=== PATIENT | male | born 1945 | race Two or more races ===

== ENCOUNTER 2019-03-13 23:46 | Inpatient (IN) | payer MEDICARE ==
[~2019-03-13] VITALS: Ht 185.4 cm; Wt 117.5 kg
[~2019-03-13 23:46] MED LIST: AMLO5TAB88 PO; BUME2TAB7 PO; DRON400T PO; FINA5TAB11 PO; FURO-151 PO; GABA-529 PO; GLIP10TA10 PO; METF-416 PO; RIVA10TA PO; TAMS0.4C31 PO; TRAM50TA3 PO
[2019-03-14 01:03] LABS: BASOPHILS % 0.4 % (0.0-2.0); EOSINOPHILS % 0.8 % (0.0-5.0); HEMATOCRIT. 33.1 % (42.0-52.0); HEMOGLOBIN. 10.6 g/dL (14.0-18.0); LYMPHOCYTES % 8.7 % (20.0-50.0); MEAN CORPUSCULAR HEMOGLOBIN 24.5 pg (28.0-32.0); MEAN CORPUSCULAR VOLUME 76.3 fL (80.0-94.0); MEAN PLATELET VOLUME 7.1 fl (7.4-10.4); MONOCYTES % 7.3 % (2.0-8.0); NEUTROPHILS % 82.8 % (40.0-76.0); PLATELET 252 x1000/uL (130-400); RED BLOOD CELL COUNT 4.34 mill/uL (4.7-6.1); RED CELL DISTRIBUTION WIDTH 19.4 % (11.6-14.6)
[2019-03-14 01:08] LABS: CHLORIDE 105 mEq/L (98-107)
[2019-03-14] MEDS ORDERED: ASPIRIN 325MG EC TABLET PO ONE (03:45)
[2019-03-14 08:30] VITALS: BP 138/87
[2019-03-14] MEDS ORDERED: DEXTROSE 50% WATER 50ML SYRINGE IV PRN ×2 (09:45→14:30)
[2019-03-14] MEDS ORDERED: INFLUENZA VIRUS VACCINE(AFLURIA) 0.5ML SYR IM ONE (10:45)
[2019-03-14] MEDS: AMLODIPINE 5MG TABLET PO SCH (11:51)
[2019-03-14 12:00] VITALS: BP 131/83
[2019-03-14] MEDS: BLOOD SUGAR DIAGNOSTIC STRIP TEST SCH ×3 (12:40→20:51)
[2019-03-14] MEDS: INSULIN LISPRO 100 UNITS/ML SUBCUT SCH ×3 (13:10→20:51)
[2019-03-14] MEDS ORDERED: REGADENOSON 0.4 MG/5 ML IV NR (14:15)
[2019-03-14] MEDS ORDERED: AMLODIPINE 5MG TABLET PO SCH (14:30)
[2019-03-14] MEDS ORDERED: FINASTERIDE 5MG TABLET PO SCH (14:30)
[2019-03-14] MEDS ORDERED: BUMETANIDE 2 MG PO SCH (14:30)
[2019-03-14] MEDS ORDERED: RIVAROXABAN 10 MG TABLET PO SCH (14:30)
[2019-03-14] MEDS ORDERED: TRAMADOL 50MG TABLET PO SCH (14:30)
[2019-03-14] MEDS: TAMSULOSIN HCL 0.4MG SR CAPSULE PO SCH (15:22)
[2019-03-14] MEDS: GLIPIZIDE 10MG TABLET PO SCH ×2 (15:22→17:24)
[2019-03-14] MEDS: GABAPENTIN 100MG CAPSULE PO SCH (15:22)
[2019-03-14 16:00] VITALS: BP 147/92
[2019-03-14] MEDS ORDERED: DRONEDARONE HYDROCHLORIDE 400 MG PO SCH (17:00)
[2019-03-14] MEDS ORDERED: BUMETANIDE 1MG TABLET PO SCH (17:00)
[2019-03-14] MEDS: RIVAROXABAN 20 MG TABLET PO SCH (17:25)
[2019-03-14] MEDS ORDERED: BLOOD SUGAR DIAGNOSTIC STRIP TEST SCH (17:40)
[2019-03-14] MEDS ORDERED: INSULIN LISPRO 100 UNITS/ML SUBCUT SCH (18:10)
[2019-03-14] MEDS: METFORMIN HCL 500MG TABLET PO SCH (19:08)
[2019-03-14 20:00] VITALS: BP 120/65
[2019-03-14 21:00] LABS: T4 FREE 1.25 ng/dL (0.76-1.46)
[2019-03-14] MEDS: TRAMADOL 50MG TABLET PO PRN (21:33)
[2019-03-14] MEDS: INSULIN GLARGINE UD 100 UNITS/ML SYR SUBCUT SCH (21:38)
[2019-03-15] VITALS: BP 130/55
[2019-03-15] LABS: CREATINE KINASE MB FRACTION 9.2 ng/mL (0.5-3.6)
[2019-03-15 04:00] VITALS: BP 130/84
[2019-03-15] MEDS: INSULIN LISPRO 100 UNITS/ML SUBCUT SCH ×4 (06:58→21:41)
[2019-03-15] MEDS: BLOOD SUGAR DIAGNOSTIC STRIP TEST SCH ×4 (06:58→21:39)
[2019-03-15] MEDS: METFORMIN HCL 500MG TABLET PO SCH ×2 (07:47→18:16)
[2019-03-15 08:00] VITALS: BP 142/85
[2019-03-15 08:24] LABS: CREATINE KINASE MB FRACTION 8.1 ng/mL (0.5-3.6)
[2019-03-15] MEDS ORDERED: TAMSULOSIN HCL 0.4MG SR CAPSULE PO SCH (09:00)
[2019-03-15] MEDS ORDERED: FUROSEMIDE 40MG TABLET PO SCH ×2 (09:00)
[2019-03-15] MEDS ORDERED: FUROSEMIDE 40MG/4ML VIAL IVP SCH (09:00)
[2019-03-15] MEDS: GLIPIZIDE 10MG TABLET PO SCH ×2 (09:17→18:16)
[2019-03-15] MEDS: FINASTERIDE 5MG TABLET PO SCH (09:18)
[2019-03-15] MEDS: GABAPENTIN 100MG CAPSULE PO SCH (09:18)
[2019-03-15] MEDS: AMLODIPINE 5MG TABLET PO SCH (09:19)
[2019-03-15] MEDS: TAMSULOSIN HCL 0.4MG SR CAPSULE PO SCH (09:19)
[2019-03-15 12:00] VITALS: BP 138/79
[2019-03-15 15:47] LABS: CREATINE KINASE MB FRACTION 8.5 ng/mL (0.5-3.6)
[2019-03-15 16:00] VITALS: BP 128/90
[2019-03-15] MEDS: FUROSEMIDE 40MG/4ML VIAL IVP SCH (18:15)
[2019-03-15] MEDS: RIVAROXABAN 20 MG TABLET PO SCH (18:16)
[2019-03-15 20:00] VITALS: BP 120/80
[2019-03-15] MEDS: TRAMADOL 50MG TABLET PO PRN (20:43)
[2019-03-15] MEDS: INSULIN GLARGINE UD 100 UNITS/ML SYR SUBCUT SCH (21:41)
[2019-03-16] VITALS: BP 126/80
[2019-03-16 04:00] VITALS: BP 140/80
[2019-03-16] MEDS: BLOOD SUGAR DIAGNOSTIC STRIP TEST SCH ×4 (05:45→21:00)
[2019-03-16] MEDS: FUROSEMIDE 40MG/4ML VIAL IVP SCH ×2 (05:53→17:57)
[2019-03-16] MEDS: TRAMADOL 50MG TABLET PO PRN ×2 (05:53→18:18)
[2019-03-16 06:25] LABS: BASOPHILS % 0.4 % (0.0-2.0); HEMATOCRIT. 32.7 % (42.0-52.0); HEMOGLOBIN. 10.7 g/dL (14.0-18.0); LYMPHOCYTES % 17.5 % (20.0-50.0); MEAN CORPUSCULAR HEMOGLOBIN 24.9 pg (28.0-32.0); MEAN PLATELET VOLUME 6.9 fl (7.4-10.4); MONOCYTES % 9.3 % (2.0-8.0); NEUTROPHILS % 70.8 % (40.0-76.0); PLATELET 234 x1000/uL (130-400); RED CELL DISTRIBUTION WIDTH 19.5 % (11.6-14.6)
[2019-03-16 06:39] LABS: CHLORIDE 104 mEq/L (98-107)
[2019-03-16] MEDS: INSULIN LISPRO 100 UNITS/ML SUBCUT SCH ×4 (07:56→21:00)
[2019-03-16 08:00] VITALS: BP 134/79
[2019-03-16] MEDS: GLIPIZIDE 10MG TABLET PO SCH ×2 (08:29→17:57)
[2019-03-16] MEDS: GABAPENTIN 100MG CAPSULE PO SCH (08:29)
[2019-03-16] MEDS: AMLODIPINE 5MG TABLET PO SCH (08:29)
[2019-03-16] MEDS: TAMSULOSIN HCL 0.4MG SR CAPSULE PO SCH (08:29)
[2019-03-16] MEDS: FINASTERIDE 5MG TABLET PO SCH (08:29)
[2019-03-16] MEDS: METFORMIN HCL 500MG TABLET PO SCH ×2 (08:29→17:57)
[2019-03-16 12:45] VITALS: BP 159/79
[2019-03-16] MEDS ORDERED: METOLAZONE 2.5MG TABLET PO NR (13:30)
[2019-03-16] MEDS: CARVEDILOL 6.25 MG TABLET PO SCH ×2 (14:26→20:33)
[2019-03-16] MEDS: POTASSIUM CHLORIDE 20MEQ TABLET SR PO SCH (14:26)
[2019-03-16] MEDS ORDERED: FURO20TA4 MT (15:50)
[2019-03-16] MEDS ORDERED: GLIP10TA10 PO (15:50)
[2019-03-16 16:42] VITALS: BP 129/86
[2019-03-16] MEDS: RIVAROXABAN 20 MG TABLET PO SCH (17:57)
[2019-03-16 20:00] VITALS: BP 123/75
[2019-03-16] MEDS: INSULIN GLARGINE UD 100 UNITS/ML SYR SUBCUT SCH (22:54)
[2019-03-17] VITALS: BP 126/79
[2019-03-17 04:00] VITALS: BP 124/84
[2019-03-17] MEDS: FUROSEMIDE 40MG/4ML VIAL IVP SCH ×2 (05:59→18:05)
[2019-03-17] MEDS: TRAMADOL 50MG TABLET PO PRN ×2 (06:00→18:05)
[2019-03-17] MEDS: BLOOD SUGAR DIAGNOSTIC STRIP TEST SCH ×4 (06:07→21:20)
[2019-03-17 07:17] LABS: BASOPHILS % 0.3 % (0.0-2.0); EOSINOPHILS % 2.5 % (0.0-5.0); HEMATOCRIT. 32.7 % (42.0-52.0); HEMOGLOBIN. 10.4 g/dL (14.0-18.0); LYMPHOCYTES % 17.1 % (20.0-50.0); MEAN CORPUSCULAR HEMOGLOBIN 24.4 pg (28.0-32.0); MEAN CORPUSCULAR VOLUME 76.8 fL (80.0-94.0); MEAN PLATELET VOLUME 7.2 fl (7.4-10.4); MONOCYTES % 10.5 % (2.0-8.0); NEUTROPHILS % 69.6 % (40.0-76.0); PLATELET 215 x1000/uL (130-400); RED BLOOD CELL COUNT 4.26 mill/uL (4.7-6.1); RED CELL DISTRIBUTION WIDTH 19.2 % (11.6-14.6)
[2019-03-17 08:00] VITALS: BP 121/77
[2019-03-17] MEDS: INSULIN LISPRO 100 UNITS/ML SUBCUT SCH ×4 (08:10→21:00)
[2019-03-17 08:35] LABS: CHLORIDE 101 mEq/L (98-107)
[2019-03-17] MEDS: POTASSIUM CHLORIDE 20MEQ TABLET SR PO SCH (08:49)
[2019-03-17] MEDS: FINASTERIDE 5MG TABLET PO SCH (08:49)
[2019-03-17] MEDS: METOLAZONE 2.5MG TABLET PO SCH (08:50)
[2019-03-17] MEDS: GLIPIZIDE 10MG TABLET PO SCH ×2 (08:50→18:06)
[2019-03-17] MEDS: CARVEDILOL 6.25 MG TABLET PO SCH ×2 (08:50→21:19)
[2019-03-17] MEDS: METFORMIN HCL 500MG TABLET PO SCH ×2 (08:50→18:06)
[2019-03-17] MEDS: GABAPENTIN 100MG CAPSULE PO SCH (08:51)
[2019-03-17] MEDS: TAMSULOSIN HCL 0.4MG SR CAPSULE PO SCH (08:51)
[2019-03-17] MEDS: AMLODIPINE 5MG TABLET PO SCH (08:51)
[2019-03-17 12:00] VITALS: BP 131/75
[2019-03-17 16:00] VITALS: BP 136/83
[2019-03-17] MEDS: RIVAROXABAN 20 MG TABLET PO SCH (18:06)
[2019-03-17 20:00] VITALS: BP 126/87
[2019-03-17] MEDS: INSULIN GLARGINE UD 100 UNITS/ML SYR SUBCUT SCH (21:43)
[2019-03-18] VITALS: BP 125/83
[2019-03-18] MEDS: TRAMADOL 50MG TABLET PO PRN (00:34)
[2019-03-18 04:00] VITALS: BP 120/74
[2019-03-18] MEDS: BLOOD SUGAR DIAGNOSTIC STRIP TEST SCH ×2 (06:12→13:28)
[2019-03-18] MEDS: FUROSEMIDE 40MG/4ML VIAL IVP SCH (06:16)
[2019-03-18 06:49] LABS: BASOPHILS % 0.6 % (0.0-2.0); EOSINOPHILS % 2.6 % (0.0-5.0); HEMATOCRIT. 34.3 % (42.0-52.0); LYMPHOCYTES % 17.4 % (20.0-50.0); MEAN CORPUSCULAR HEMOGLOBIN 24.5 pg (28.0-32.0); MEAN CORPUSCULAR VOLUME 76.6 fL (80.0-94.0); MEAN PLATELET VOLUME 7.2 fl (7.4-10.4); MONOCYTES % 10.2 % (2.0-8.0); NEUTROPHILS % 69.2 % (40.0-76.0); PLATELET 252 x1000/uL (130-400); RED BLOOD CELL COUNT 4.48 mill/uL (4.7-6.1); RED CELL DISTRIBUTION WIDTH 18.9 % (11.6-14.6)
[2019-03-18 07:49] LABS: CHLORIDE 98 mEq/L (98-107)
[2019-03-18 08:00] VITALS: BP 133/89
[2019-03-18] MEDS: INSULIN LISPRO 100 UNITS/ML SUBCUT SCH ×2 (08:10→13:10)
[2019-03-18] MEDS: GABAPENTIN 100MG CAPSULE PO SCH (08:42)
[2019-03-18] MEDS: POTASSIUM CHLORIDE 20MEQ TABLET SR PO SCH (08:42)
[2019-03-18] MEDS: METFORMIN HCL 500MG TABLET PO SCH (08:42)
[2019-03-18] MEDS: FINASTERIDE 5MG TABLET PO SCH (08:42)
[2019-03-18] MEDS: GLIPIZIDE 10MG TABLET PO SCH (08:43)
[2019-03-18] MEDS: TAMSULOSIN HCL 0.4MG SR CAPSULE PO SCH (08:43)
[2019-03-18] MEDS: METOLAZONE 2.5MG TABLET PO SCH (08:43)
[2019-03-18] MEDS: CARVEDILOL 6.25 MG TABLET PO SCH (08:43)
[2019-03-18] MEDS: AMLODIPINE 5MG TABLET PO SCH (08:44)
[2019-03-18] MEDS ORDERED: COR6 PO (08:48)
[2019-03-18] MEDS ORDERED: LANTUSUD SUBCUT (08:48)
[2019-03-18] MEDS ORDERED: METO2.5T14 PO (08:48)
[2019-03-18] MEDS ORDERED: POTA20TA82 PO (08:48)
[2019-03-18] MEDS ORDERED: GABA-529 PO (08:48)
[2019-03-18 12:00] VITALS: BP 127/78
[2019-03-18 12:42] VITALS: BP 127/78
[2019-03-19] MEDS ORDERED: GABA-531 PO (07:47)
== END 2019-03-18 15:09 | disposition home or self-care (01) | DRG 308 ==
LOC: ER 23:46 → 7WST 03-14 04:36 → ENRESERV 03-14 07:03 → 7WST 03-14 15:54
PROVIDERS: ADMIT Family Medicine; ATTEND Family Medicine
PROC: 4B02XTZ Measurement of Cardiac Defibrillator, External Approach (ICD-10-PCS; principal; 2019-03-16)
DX: I48.20 Chronic atrial fibrillation, unspecified (principal); I50.23 Acute on chronic systolic (congestive) heart failure; I11.0 Hypertensive heart disease with heart failure; I47.2 Ventricular tachycardia; I48.92 Unspecified atrial flutter; I42.8 Other cardiomyopathies; E11.9 Type 2 diabetes mellitus without complications; N40.0 Benign prostatic hyperplasia without lower urinary tract symptoms; E78.5 Hyperlipidemia, unspecified; E66.9 Obesity, unspecified; I49.5 Sick sinus syndrome; I48.0 Paroxysmal atrial fibrillation; J44.9 Chronic obstructive pulmonary disease, unspecified; D63.8 Anemia in other chronic diseases classified elsewhere; I27.20 Pulmonary hypertension, unspecified; Z82.49 Family history of ischemic heart disease and other diseases of the circulatory system; Z95.810 Presence of automatic (implantable) cardiac defibrillator; Z83.3 Family history of diabetes mellitus; Z79.84 Long term (current) use of oral hypoglycemic drugs; Z68.34 Body mass index [BMI] 34.0-34.9, adult
CPT/HCPCS: 36415; 71045; 80048; 80061; 82550; 82553; 82962; 83036; 83735; 83880; 84439; 84443; 84484; 85379; 90686; 93005; 93306; 93970; 99285; J1815; J1940

== ENCOUNTER 2020-11-23 12:24 | Emergency (ER) | payer BC, MEDICARE ==
[~2020-11-23] VITALS: Ht 177.8 cm; Wt 100.0 kg
[~2020-11-23 12:24] MED LIST changes: -AMLO5TAB88 PO; -BUME2TAB7 PO; -DRON400T PO; -FURO-151 PO; -GABA-529 PO; +GABA-532 PO; +LANTUSUD SUBCUT
[2020-11-23] MEDS ORDERED: ACETAMINOPHEN 325MG TABLET PO STA (12:53)
[2020-11-23 13:37] LABS: BASOPHILS % 0.3 % (0.0-2.0); CHLORIDE 103 mEq/L (98-107); EOSINOPHILS % 0.6 % (0.0-5.0); HEMATOCRIT. 33.1 % (42.0-52.0); HEMOGLOBIN. 11.2 g/dL (14.0-18.0); LYMPHOCYTES % 9.5 % (20.0-50.0); MEAN CORPUSCULAR HEMOGLOBIN 25.7 pg (28.0-32.0); MEAN CORPUSCULAR VOLUME 75.7 fL (80.0-94.0); MEAN PLATELET VOLUME 7.3 fl (7.4-10.4); MONOCYTES % 10.5 % (2.0-8.0); NEUTROPHILS % 79.1 % (40.0-76.0); PLATELET 201 x1000/uL (130-400); RED BLOOD CELL COUNT 4.37 mill/uL (4.7-6.1)
[2020-11-23 13:42] LABS: INR 1.4; PROTHROMBIN TIME 14.2 sec (9.6-11.0)
[2020-11-23] MEDS ORDERED: CEFTRIAXONE 1 G PREMIX 50 ML IV ONE (14:15)
[2020-11-23] MEDS ORDERED: FUROSEMIDE 40MG/4ML VIAL IVP ONE (14:15)
[2020-11-23 19:30] VITALS: BP 134/77
== END 2020-11-23 19:31 | disposition short-term general hospital (02) ==
LOC: ER 12:24
DX: L03.116 Cellulitis of left lower limb (principal); L03.115 Cellulitis of right lower limb; I11.0 Hypertensive heart disease with heart failure; I50.9 Heart failure, unspecified; E11.9 Type 2 diabetes mellitus without complications; I25.10 Atherosclerotic heart disease of native coronary artery without angina pectoris; Z95.0 Presence of cardiac pacemaker; Z79.4 Long term (current) use of insulin
CPT/HCPCS: 36415; 71045; 80053; 83880; 85025; 85610; 93971; 96374; 96375; 99285; J0696; J1940

== ENCOUNTER 2021-12-16 20:57 | Emergency (ER) | payer MEDICARE ==
[~2021-12-16] VITALS: Ht 185.4 cm; Wt 116.0 kg
[2021-12-16] MEDS ORDERED: MUPIROCIN 2% OINT 15GM NS SCH (22:35)
[2021-12-16 22:48] LABS: BASOPHILS % 0.3 % (0.0-2.0); EOSINOPHILS % 1.7 % (0.0-5.0); HEMATOCRIT. 33.4 % (42.0-52.0); HEMOGLOBIN. 10.8 g/dL (14.0-18.0); MEAN CORPUSCULAR HEMOGLOBIN 24.7 pg (28.0-32.0); MEAN CORPUSCULAR VOLUME 76.2 fL (80.0-94.0); MEAN PLATELET VOLUME 7.6 fl (7.4-10.4); MONOCYTES % 8.9 % (2.0-8.0); NEUTROPHILS % 79.1 % (40.0-76.0); PLATELET 222 x1000/uL (130-400); RED BLOOD CELL COUNT 4.38 mill/uL (4.7-6.1); RED CELL DISTRIBUTION WIDTH 15.9 % (11.6-14.6)
[2021-12-16 22:51] LABS: CHLORIDE 107 mEq/L (98-107)
[2021-12-17] MEDS ORDERED: FUROSEMIDE 100MG/10ML VIAL IVP NR (00:07)
[2021-12-17 01:00] VITALS: BP 134/70
== END 2021-12-17 01:10 | disposition home or self-care (01) ==
LOC: ER 20:57
DX: R60.0 Localized edema (principal); L02.425 Furuncle of right lower limb; M79.605 Pain in left leg; E11.9 Type 2 diabetes mellitus without complications; I25.10 Atherosclerotic heart disease of native coronary artery without angina pectoris; Z95.0 Presence of cardiac pacemaker
CPT/HCPCS: 36415; 71045; 80053; 82962; 83880; 84484; 85025; 93005; 93970; 96374; 99285; J1940